=== PATIENT | male | born 1975 | race Caucasian/White ===

== ENCOUNTER 2021-05-09 08:01 | Emergency (ER) | payer BC, SELFPAY ==
[2021-05-09 08:10] VITALS: BP 166/87; PULSE 105; RESP 16; TEMP 36.9; O2SAT 100
--- NOTE | 2021-05-09 09:23 | PC.NURSE ---
0815 following registration pt informs staff he needs his fingernail removed after injury last night and asks if we can do that here. Informed provider would see and evaluate him and if unable to remove nail would make recommendations for further care. informed provider not at facility at this time and visit may be delayed. pt removes dressing from nail and states nail [id number], observed unattached at base/no bleeding. pt states will leave at this time and go to another facility for possible nail removal/xray if needed. reapplied bandaid. observed pt pleasant and conversive in no distress.
== END 2021-05-09 08:15 | disposition left against medical advice (07) ==
PROVIDERS: Emergency Provider Internal Medicine Hematology & Oncology; PCP Internal Medicine
DX: Z53.21 Procedure and treatment not carried out due to patient leaving prior to being seen by health care provider (principal)
CPT/HCPCS: 99199

== ENCOUNTER 2021-10-30 12:35 | Emergency (ER) | payer BC, SELFPAY ==
[2021-10-30 12:40] VITALS: BP 157/86; PULSE 92; RESP 14; TEMP 36.9; O2SAT 100
--- NOTE | 2021-10-30 12:45 | ED.WOUNDLAC ---
HPI - Wound/Laceration General Chief Complaint: Wound/Laceration Stated Complaint: Laceration to Wrist Time Seen by Provider: 10/30/21 12:45 Source: patient Mode of arrival: ambulatory Limitations: no limitations History of Present Illness HPI narrative: 46-year-old male presented for complaint of laceration to left wrist, after injury today. He states he cut the wrist on copper pipe while replacing water heater. Bleeding is controlled. He poured a bottle of water over the site after the injury. He is not up-to-date on tetanus. Related Data Home Medications Medication Instructions Recorded Confirmed No Home Medications 10/30/21 10/30/21 Allergies Allergy/AdvReac Type Severity Reaction Status Date / Time No Known Allergies Allergy Verified 10/30/21 12:50 Review of Systems Review of Systems: CONSTITUTIONAL: Denies body aches, fever, chills, or sweats. EYES: Denies visual changes, redness, or discharge. ENT: Denies rhinorrhea, congestion, sore throat, or otalgia. CARDIOVASCULAR: Denies chest pain, palpitations, or edema. RESPIRATORY: Denies cough or dyspnea. GASTROINTESTINAL: Denies abdominal pain, nausea, vomiting, or diarrhea. GENITOURINARY: Denies dysuria or hematuria. SKIN: rash, itching, wounds. MUSCULOSKELETAL: Denies back pain, joint pain, or myalgia. NEUROLOGIC: Denies headache, numbness, tingling, or weakness. PSYCH: Denies depression or anxiety. PMFSH Comments At time of signature, I have reviewed and agree with nursing past medical, surgical, social and family history unless otherwise noted. Please see nursing chart for further information. There is no relevant family history pertinent to the presenting complaint Exam Narrative: GENERAL: Well-appearing, well-nourished, and in no acute distress. HEAD: Normocephalic, atraumatic. EYES: PERRLA, conjunctivae clear, and EOMI. ENT: Mucous membranes moist. Oropharynx without edema, erythema or lesions. NECK: Supple. No lymphadenopathy CHEST: Clear to auscultation. No respiratory distress. HEART: Regular rate and rhythm. SKIN: Warm, dry. left wrist dorsal aspect laceration approx 1cm length, linear, approximates, scant bleeding. NEURO: Alert and oriented x3. PSYCH: Normal mood and affect Course Course Emergency Course: Patient is aware of diagnosis, understands and agrees to treatment plan. Anticipatory guidance given. Patient agrees to follow-up as directed and is aware of reasons to seek care at the emergency department. Portions of this record may have been created with voice recognition software Level of Care: Express Care Visit Vital Signs Vital signs: Vital Signs Temperature 98.4 F 10/30/21 12:40 Pulse Rate 92 10/30/21 12:40 Respiratory Rate 14 10/30/21 12:40 Blood Pressure 157/86 H 10/30/21 12:40 Pulse Oximetry 100 10/30/21 12:40 Temperature 98.4 F 10/30/21 12:51 Pulse Rate 92 10/30/21 12:51 Respiratory Rate 14 10/30/21 12:51 Blood Pressure 157/86 H 10/30/21 12:51 Pulse Oximetry 100 10/30/21 12:51 Reviewed Procedures Laceration Laceration 1: Date: 10/30/21 Time: 12:57 Site: upper extremity (wrist) Side (If applicable): right Size (cm): 1 Description: linear and clean Depth: simple, single layer Pre-repair: irrigated ====== Skin Level ====== Skin layer closed with: dermabond and steri strips ====== Subcutaneous Layer ====== ====== Muscle Layer ====== ====== Tendon Layer ====== Dressing: tolerated well MDM - Wound/Laceration MDM Narrative Medical decision making narrative: Laceration left wrist, wound cleaned and steri strips applied. pt tolerated well. Aware of s/s to monitor and f/u outpt. Differential Diagnosis Differential diagnosis: Likely laceration, abrasion and avulsion of skin Discharge Plan Discharge Clinical Impression: Laceration Patient Disposition: Home, Self-Care Conditi
[2021-10-30 12:51] VITALS: BP 157/86; PULSE 92; RESP 14; TEMP 36.9; O2SAT 100
[2021-10-30] MEDS: TETANUS,DIPHTHERIA,AC PERTUSSIS ADULT (0.5 ML) BOOSTRIX IM (12:55)
== END 2021-10-30 13:19 | disposition home or self-care (01) ==
PROVIDERS: Emergency Provider Nurse Practitioner Family; PCP Internal Medicine
DX: S61.512A Laceration without foreign body of left wrist, initial encounter (principal); W45.8XXA Other foreign body or object entering through skin, initial encounter; Z23 Encounter for immunization
CPT/HCPCS: 12001; 90471; 90715; 99212; G0463